=== PATIENT | female | born 1995 | race Caucasian/White ===

== ENCOUNTER 2024-01-10 22:50 | Emergency (ER) | payer OTHER ==
[~2024-01-10] VITALS: Ht 160 cm; Wt 63.5 kg
[~2024-01-10 22:50] MED LIST: ALBU90OI6 INH; CODACEE120 PO; IBUP100S PO; MONT5TCH PO
[2024-01-10 23:04] VITALS: BP 121/92
[2024-01-10] MEDS ORDERED: AMOCLA875 PO (23:14)
[2024-01-10] MEDS ORDERED: Amoxicillin/Clavulanate K 875 MG Tab PO ONE (23:15)
== END 2024-01-10 23:31 | disposition home or self-care (01) ==
LOC: ER 22:50
DX: S61.051A Open bite of right thumb without damage to nail, initial encounter (principal); W55.01XA Bitten by cat, initial encounter; Z91.014 Allergy to mammalian meats; Z91.013 Allergy to seafood; Z79.899 Other long term (current) drug therapy
CPT/HCPCS: 99282; A9270